=== PATIENT | male | born 1930 | race Caucasian/White ===

== ENCOUNTER 2018-04-26 11:46 | Emergency (ER) | payer MEDICARE, OTHER ==
[~2018-04-26] VITALS: Ht 172.7 cm; Wt 86.3 kg
[~2018-04-26 11:46] MED LIST: AMLODIPINE5 MG PO; ASPIRIN ADULT L81 MG PO; CIPRO XR500 MG OR; FLAGYL500 MG PO; FLUTICASONE50 MCG; LEVOTHYROID; LEVOTHYROXIN25 MCG PO; LEVOTHYROXIN50 MCG PO; LORTAB 5 OR; LOSARTAN POT50 MG PO; METOPROL TAR25 MG PO; OMEPRAZOLE20 MG PO; UNKNOWN BP MED
[2018-04-26 13:04] LABS: HEMATOCRIT 39.2 % (39.0-50.0); HEMOGLOBIN 13.1 g/dl (14.0-18.0); IMMATURE GRANULOCYTES 0.4 % (0.0-5.0); MEAN CELL VOLUME 97.3 fL CALC (80.0-100.0); MEAN CORPUSCULAR HGB 32.5 pG CALC (26.0-32.0); MEAN CORPUSCULAR HGB CONC 33.4 g/L CALC (32.0-36.0); NEUT# 9.27 thou/uL (1.82-7.42); RED BLOOD COUNT 4.03 mill/uL (4.70-6.10); RED CELL DISTRI WIDTH 14.3 % (11.5-15.5)
[2018-04-26 13:15] LABS: ALBUMIN 4.3 g/dL (3.2-5.0); ALKALINE PHOSPHATASE 63 u/l (38-126); ANION GAP 12 (6-22 (CALC)); BILIRUBIN, TOTAL 0.9 mg/dL (0.0-1.4); BUN 21 mg/dL (8-23); BUN/CREATININE RATIO 19 (12-20 (CALC)); CARBON DIOXIDE 24 mmol/l (22-30); CHLORIDE 108 mmol/l (95-108); CREATININE 1.1 mg/dL (0.7-1.3); GFR > 60 ML/MIN (>=60 (CALC)); GFR FOR AFR.AMER. > 60 ML/MIN (>=60 (CALC)); LIPASE 108 u/l (23-300); POTASSIUM 4.4 mmol/l (3.5-5.1); SGOT/AST 25 u/l (19-48); SGPT/ALT 26 u/l (11-66); SODIUM 140 mmol/l (137-146); TOTAL PROTEIN 7.3 g/dL (6.3-8.2)
[2018-04-26 13:27] LABS: MYOGLOBIN 39 ng/mL (0 - 121)
[2018-04-26] MEDS ORDERED: LOSARTAN POT25 MG PO (14:00)
[2018-04-26 14:28] LABS: URINE BILIRUBIN - DIPSTICK NEGATIVE (NEGATIVE); URINE BLOOD DIPSTICK NEGATIVE (NEGATIVE); URINE COLOR YELLOW; URINE GLUCOSE - DIPSTICK NEGATIVE (NEGATIVE); URINE KETONE NEGATIVE (NEGATIVE); URINE LEUK ESTERASE NEGATIVE (NEGATIVE); URINE NITRITE - DIPSTICK NEGATIVE (Negative); URINE PROTEIN - DIPSTICK NEGATIVE (NEG-TRACE); URINE SPECIFIC GRAVITY >=1.030; URINE UROBILINOGEN - DIPSTICK 0.2 E.U./dL (0.2)
[2018-04-26 14:33] LABS: URINE CLARITY CLEAR
[2018-04-26] MEDS ORDERED: TAMSULOSIN0.4 MG PO (20:47)
[2018-04-26 21:12] VITALS: BP 151/69
[2018-04-27] MEDS ORDERED: OMEPRAZOLE10 MG PO (15:38)
[2018-04-27] MEDS ORDERED: LEVOTHYROXIN50 MCG PO (15:38)
[2018-04-27] MEDS ORDERED: ASPIRIN81 MG PO (15:39)
[2018-04-27] MEDS ORDERED: LOSARTAN POT25 MG PO (15:39)
[2018-04-27] MEDS ORDERED: AMLODIPINE2.5 MG PO (15:40)
== END 2018-04-26 21:12 | disposition home or self-care (01) ==
LOC: ED 11:46
PROVIDERS: Emergency Medicine
DX: K57.30 Diverticulosis of large intestine without perforation or abscess without bleeding (principal); N40.0 Benign prostatic hyperplasia without lower urinary tract symptoms; I10 Essential (primary) hypertension; K21.9 Gastro-esophageal reflux disease without esophagitis; E03.9 Hypothyroidism, unspecified; Z79.899 Other long term (current) drug therapy; R94.31 Abnormal electrocardiogram [ECG] [EKG]; K92.1 Melena

== ENCOUNTER 2018-04-27 11:41 | Emergency (ER) | payer MEDICARE, OTHER ==
[~2018-04-27] VITALS: Ht 172.7 cm; Wt 68.2 kg
[~2018-04-27 11:41] MED LIST changes: +LOSARTAN POT25 MG PO; +TAMSULOSIN0.4 MG PO
[2018-04-27 12:22] LABS: HEMATOCRIT 36.7 % (39.0-50.0); HEMOGLOBIN 12.2 g/dl (14.0-18.0); IMMATURE GRANULOCYTES 0.4 % (0.0-5.0); MEAN CELL VOLUME 98.1 fL CALC (80.0-100.0); MEAN CORPUSCULAR HGB 32.6 pG CALC (26.0-32.0); MEAN CORPUSCULAR HGB CONC 33.2 g/L CALC (32.0-36.0); NEUT# 6.61 thou/uL (1.82-7.42); RED BLOOD COUNT 3.74 mill/uL (4.70-6.10); RED CELL DISTRI WIDTH 14.5 % (11.5-15.5)
[2018-04-27 12:41] LABS: ANION GAP 16 (6-22 (CALC)); BUN 21 mg/dL (8-23); BUN/CREATININE RATIO 19 (12-20 (CALC)); CARBON DIOXIDE 25 mmol/l (22-30); CHLORIDE 108 mmol/l (95-108); CREATININE 1.1 mg/dL (0.7-1.3); GFR > 60 ML/MIN (>=60 (CALC)); GFR FOR AFR.AMER. > 60 ML/MIN (>=60 (CALC)); POTASSIUM 4.6 mmol/l (3.5-5.1); SODIUM 144 mmol/l (137-146)
[2018-04-27 14:00] LABS: INTERNATIONAL NORMALIZED RATIO 0.9 RATIO (0.7-1.3); PROTHROMBIN TIME 10.4 SECONDS (9.0-12.5)
[2018-04-27] MEDS ORDERED: LEVOTHYROXIN50 MCG PO (15:38)
[2018-04-27] MEDS ORDERED: OMEPRAZOLE10 MG PO (15:38)
[2018-04-27] MEDS ORDERED: ASPIRIN81 MG PO (15:39)
[2018-04-27] MEDS ORDERED: LOSARTAN POT25 MG PO (15:39)
[2018-04-27] MEDS ORDERED: AMLODIPINE2.5 MG PO (15:40)
[2018-04-27 17:44] VITALS: BP 117/64
== END 2018-04-27 16:33 | disposition short-term general hospital (02) ==
LOC: ED 11:41
PROVIDERS: Family Medicine
DX: K92.1 Melena (principal); I10 Essential (primary) hypertension; K21.9 Gastro-esophageal reflux disease without esophagitis; E03.9 Hypothyroidism, unspecified; K57.30 Diverticulosis of large intestine without perforation or abscess without bleeding
CPT/HCPCS: S0164

== ENCOUNTER 2018-06-13 09:51 | Outpatient (REF) | payer MEDICARE, OTHER ==
[~2018-06-13] VITALS: Ht 170.2 cm; Wt 61.7 kg
[~2018-06-13 09:51] MED LIST changes: +AMLODIPINE2.5 MG PO; +ASPIRIN81 MG PO; +OMEPRAZOLE10 MG PO
== END 2018-06-13 11:00 | disposition home or self-care (01) ==
LOC: INF 09:51
PROVIDERS: ATTEND Internal Medicine
DX: M81.0 Age-related osteoporosis without current pathological fracture (principal)
CPT/HCPCS: J0897